=== PATIENT | female | born 1990 | race African-American/Black ===

== ENCOUNTER → 2023-10-31 10:07 | Outpatient (REF) | payer BC, SELFPAY | LOC: WDC 10:07 | PROVIDERS: ATTENDING PHYSICIAN Student in an Organized Health Care Education/Training Program | DX: N64.4 Mastodynia (principal); Z80.3 Family history of malignant neoplasm of breast | CPT/HCPCS: 76642; 77062; 77066 ==

== ENCOUNTER → 2024-01-01 11:23 | Outpatient (REF) | payer BC, SELFPAY | LOC: RAD 11:23 | PROVIDERS: ATTENDING PHYSICIAN Physician Assistant Medical | DX: M25.511 Pain in right shoulder (principal) | CPT/HCPCS: 73030 ==

== ENCOUNTER → 2024-07-08 10:56 | Outpatient (REF) | payer BC, SELFPAY | LOC: RAD 10:56 | PROVIDERS: ATTENDING PHYSICIAN Physician Assistant Medical | DX: R05.1 Acute cough (principal) | CPT/HCPCS: 71046 ==